=== PATIENT | female | born 1985 | race Hispanic/Latino ===

== ENCOUNTER 2021-12-27 09:21 | Inpatient (IN) | payer MEDICAID, OTHER ==
[2021-12-27 09:53] VITALS: BMI 23.3
[2021-12-27 10:29] LABS: Fetal Membranes Rupture No Membranes Rupture (No Rupture)
[2021-12-27] MEDS ORDERED: Methylergonovine 0.2 MG/ML VIAL IM PRN ×2 (11:12→21:37)
[2021-12-27] MEDS ORDERED: Promethazine HCl 25 MG/ML VIAL IM PRN ×2 (11:12→14:48)
[2021-12-27] MEDS ORDERED: hydrALAZINE 20 MG/ML VIAL SLOW IVP PRN ×2 (11:12→21:37)
[2021-12-27] MEDS ORDERED: Lidocaine 1% (PF) 30 ML VIAL SC PRN (11:12)
[2021-12-27] MEDS ORDERED: Ibuprofen 800 MG TAB PO PRN (11:12)
[2021-12-27] MEDS ORDERED: Ondansetron PF 4 MG/2 ML Vial IVP PRN ×3 (11:12→21:37)
[2021-12-27] MEDS ORDERED: Misoprostol 200 MCG TAB PR PRN (11:12)
[2021-12-27] MEDS ORDERED: Carboprost 250 MCG/ML AMP IM PRN (11:12)
[2021-12-27] MEDS ORDERED: NS w/ Oxytocin 30 units 500 ML IV SCH ×2 (11:15→23:00)
[2021-12-27 12:14] LABS: Platelet Count 142 10x3/uL (150-450)
[2021-12-27 12:15] LABS: Hemoglobin 12.4 g/dL (12.0-15.5); Mean Corpuscular HGB CONC 35.8 g/dL (32.0-36.0); Mean Corpuscular Hemoglobin 34.2 pg (27.0-33.0); Mean Corpuscular Volume 95.3 fl (81.6-98.3); RBC Distribution Width 12.4 % (11.5-14.5); Red Blood Cell (RBC) Count 3.63 10x6/uL (3.90-5.03); White Blood Cell (WBC) Count 9.6 10x3/uL (3.5-10.5)
[2021-12-27] MEDS: NS w/ Oxytocin 30 units 500 ML IV SCH ×2 (12:31→18:35)
[2021-12-27 12:40] LABS: Syphilis Antibody Nonreactive (Nonreactive); Syphilis Antibody Index 0.02 S/CO (<1.00 Non-Reactive)
[2021-12-27 12:43] LABS: Hep B Surf Ag Non-Reactive S/CO (NonReactive)
[2021-12-27 12:49] LABS: HBSAg Index 0.19 S/CO (0-0.99)
[2021-12-27] MEDS ORDERED: Fentanyl 2 mcg/Bup 0.1% Cadd 100 ML ONE (13:43)
[2021-12-27] MEDS ORDERED: Acetaminophen 325 MG TAB PO PRN (14:48)
[2021-12-27] MEDS ORDERED: Naloxone HCl 0.4 mg/ml Vial IVP PRN ×2 (14:48)
[2021-12-27] MEDS ORDERED: Moisturizing Cream (Eucerin) 113 GM JAR TOP PRN (14:48)
[2021-12-27] MEDS ORDERED: diphenhydrAMINE 50 MG/ML VIAL IVP PRN (14:48)
[2021-12-27] MEDS ORDERED: Lactated Ringer's 500 ML IV PRN (14:48)
[2021-12-27] MEDS ORDERED: ePHEDrine Sulfate 50 MG/10 ML VIAL SLOW IVP PRN (14:48)
[2021-12-27] MEDS ORDERED: Fentanyl 2 mcg/Bupivacaine 0.1% Cassette 100 ML EPIDURAL SCH (15:00)
[2021-12-27] MEDS ORDERED: Communication Order-Pharmacy FS SCH (15:00)
[2021-12-27 15:06] LABS: SARS-CoV-2 NAA Rapid Test Not Detected (NotDetected)
[2021-12-27] MEDS ORDERED: Lidocaine 1% (PF) 30 ML VIAL ONE (18:22)
[2021-12-27] MEDS ORDERED: Misoprostol 200 MCG TAB VAG PRN (21:37)
[2021-12-27] MEDS ORDERED: Preparation H Ointment 28 GM TUBE PR PRN (21:37)
[2021-12-27] MEDS ORDERED: Bisacodyl 10 MG SUPP PR PRN (21:37)
[2021-12-27] MEDS ORDERED: diphenhydrAMINE 25 MG CAP PO PRN (21:37)
[2021-12-27] MEDS ORDERED: Milk Of Magnesia 30 ML UDCUP PO PRN (21:37)
[2021-12-27] MEDS ORDERED: Lanolin Ointment 7 GM TUBE TOP PRN (21:37)
[2021-12-27] MEDS ORDERED: Benzocaine-Menthol 82.5 ML CAN TOP PRN (21:37)
[2021-12-27] MEDS ORDERED: Boostrix 0.5 ML (Tdap) VIAL IM ONE (21:37)
[2021-12-27] MEDS ORDERED: Ibuprofen 800 MG TAB PO SCH (22:30)
[2021-12-27] MEDS ORDERED: Docusate 100 MG CAP PO SCH (22:30)
[2021-12-27] MEDS ORDERED: levETIRAcetam 500 MG TAB PO SCH (22:45)
[2021-12-28] MEDS: Ibuprofen 800 MG TAB PO SCH ×3 (05:40→21:43)
[2021-12-28] MEDS: Ferrous Sulfate 325 MG TAB PO SCH ×2 (08:06→17:29)
[2021-12-28] MEDS: Prenatal Vitamin 1 TAB PO SCH (08:53)
[2021-12-28] MEDS: levETIRAcetam 500 MG TAB PO SCH ×2 (08:54→21:43)
[2021-12-28] MEDS: Docusate 100 MG CAP PO SCH ×2 (08:54→21:43)
[2021-12-29] MEDS: Ibuprofen 800 MG TAB PO SCH ×2 (05:23→14:07)
[2021-12-29] MEDS: Ferrous Sulfate 325 MG TAB PO SCH ×2 (07:43→17:12)
[2021-12-29 08:23] VITALS: BP 99/51; TEMP 98.8
[2021-12-29] MEDS: levETIRAcetam 500 MG TAB PO SCH (09:29)
[2021-12-29] MEDS: Docusate 100 MG CAP PO SCH (09:29)
[2021-12-29] MEDS: Prenatal Vitamin 1 TAB PO SCH (09:29)
== END 2021-12-29 18:40 | disposition home or self-care (01) | DRG 806 ==
LOC: CSHLD/OP 09:21 → CSHLD 10:55 → CSHPED 22:15
PROVIDERS: ADMIT Family Medicine; ATTEND Family Medicine
PROC: 10E0XZZ Delivery of Products of Conception, External Approach (ICD-10-PCS; principal; 2021-12-27)
PROC: 0KQM0ZZ Repair Perineum Muscle, Open Approach (ICD-10-PCS; 2021-12-27)
PROC: 0UQMXZZ Repair Vulva, External Approach (ICD-10-PCS; 2021-12-27)
PROC: 10907ZC Drainage of Amniotic Fluid, Therapeutic from Products of Conception, Via Natural or Artificial Opening (ICD-10-PCS; 2021-12-27)
DX: O42.02 Full-term premature rupture of membranes, onset of labor within 24 hours of rupture (principal); O99.354 Diseases of the nervous system complicating childbirth; Z37.0 Single live birth; O70.1 Second degree perineal laceration during delivery; Z3A.38 38 weeks gestation of pregnancy; Z20.822 Contact with and (suspected) exposure to COVID-19; G40.909 Epilepsy, unspecified, not intractable, without status epilepticus; Z79.899 Other long term (current) drug therapy; O69.81X0 Labor and delivery complicated by cord around neck, without compression, not applicable or unspecified
CPT/HCPCS: 36415; 51702; 80177; 84112; 85027; 86780; 86850; 86900; 86901; 87340; 99285; J2590; U0002